=== PATIENT | female | born 1990 | race Caucasian/White ===

== ENCOUNTER 2017-10-25 12:57 | Inpatient (IN) | payer BC ==
[~2017-10-25] VITALS: Ht 157 cm; Wt 94.3 kg
[2017-11-05 21:30] VITALS: BP 138/94; Ht 157 cm; Wt 94.3 kg
[2017-11-05] MEDS ORDERED: FAMOTIDINE(*) 20MG/50ML PREMIX 50 ML IVPB PRN (21:39)
[2017-11-05] MEDS ORDERED: OXYTOCIN 30 UNIT/D5LR 500 ML 500 ML IV PRN (21:39)
[2017-11-05] MEDS: LR(*) 1000 ML BAG 1,000 ML IV SCH (21:39)
[2017-11-05] MEDS ORDERED: METOCLOPRAMIDE 10 MG/2 ML SDV IVP PRN (21:40)
[2017-11-05] MEDS ORDERED: fentaNYL CITR 100 MCG/2 ML AMP IVP PRN (21:40)
[2017-11-05] MEDS ORDERED: TERBUTALINE SULF 1 MG/ML VIAL SUBQ PRN (21:40)
[2017-11-05] MEDS ORDERED: FLUSH 10 ML SYR IVP PRN (21:40)
[2017-11-05] MEDS ORDERED: LIDOCAINE/SOD BICARB 8.4% SYR SC PRN (21:40)
[2017-11-05] MEDS ORDERED: LIDOCAINE 1% LOCAL 300 MG/30ML INJ PRN (21:40)
[2017-11-05] MEDS ORDERED: LR(*) 1000 ML BAG 1,000 ML IV PRN (21:42)
[2017-11-05 22:02] LABS: PLATELET COUNT, AUTOMATED 289 K/uL (150-450)
[2017-11-05] MEDS ORDERED: EPHEDRINE SULFATE/NS/PF 50 MG/10 ML SYRINGE IVP PRN (22:05)
[2017-11-05] MEDS ORDERED: BUPIVACAINE 0.5% INJ 30ML VIAL EPI PRN (22:05)
[2017-11-05] MEDS ORDERED: FENTANYL/ROPIVACAINE 100 ML BAG EPI PRN (22:05)
[2017-11-05] MEDS ORDERED: EPIDURAL KEYS XX PRN (22:05)
[2017-11-05] MEDS ORDERED: fentaNYL CITR 100 MCG/2 ML AMP IT PRN (22:05)
[2017-11-05] MEDS ORDERED: LIDOCAINE/PF 2% 200MG/10ML AMP 200 MG/10 ML AMPUL EPI PRN (22:05)
[2017-11-05] MEDS ORDERED: LIDO/EPI 2% MPF 1:200,000 20ML EPI PRN (22:05)
[2017-11-05] MEDS ORDERED: BUPIVACAINE 0.25% MPF INJ EPI PRN (22:05)
[2017-11-05] MEDS ORDERED: PNV1COMB5 (22:07)
[2017-11-05] MEDS ORDERED: ACET-1966 PO (22:58)
[2017-11-06] VITALS (24 sets, daily range): BP systolic 101–147; BP diastolic 63–94
[2017-11-06] MEDS: LR(*) 1000 ML BAG 1,000 ML IV SCH ×2 (02:17→09:48)
[2017-11-06] MEDS ORDERED: OXYTOCIN 30 UNIT/D5LR 500 ML 500 ML IV PRN ×2 (02:30→11:49)
[2017-11-06] MEDS ORDERED: ACETAMINOPHEN 325 MG TAB PO PRN (08:30)
--- NOTE | 2017-11-06 08:30 | History & Physical ---
History of Present Illness Age of Patient: 26 : 1 Para or TPAL: 0000 EDC per LMP: Nov 11, 2017 Estimated Gestational Age: 39.2 Chief Complaint loss of fluid History of Present Illness The patient is a 26 year old 1 para 0000 admitted at 39 2/7 weeks estimated gestational age with an estimated date of delivery 11/11/17. Patient is admitted with complaint of loss of fluid. No vaginal bleeding. Good movement and occasional contractions. She was evaluated for active labor. She had positive amnisure and was started on slow pitiocin overnight. She had an uncomplicated course. Her record was reviewed. History Allergies: Coded Allergies: iodine (Verified Allergy, Mild, N/V, 11/06/17) Uncoded Allergies: shellfish (Allergy, Mild, 11/05/17) nausea Med Rec Home Meds Reported Medications Acetaminophen (TYLENOL) 325 Mg Tablet, 325 MG PO, TAB 11/05/17 Pnv #116/Iron Fumarate/Fa/Dha (EXPECTA COMBO PACK) 1 Each Combo..pkg 11/05/17 Exam General Exam Vital Signs Vital Signs Date Time Temp Pulse Resp B/P (MAP) Pulse Ox O2 Delivery O2 Flow Rate FiO2 11/05/17 21:30 98.8 111 18 138/94 (109) 94 Room Air Cardiovascular: Regular Rate and Rhythm Respiratory: Clear to Auscultation Abdomen: Gravid - Non-Tender Extremities: No Edema Cervical Dialation: 4 (rn) Cervical Effacement (%): 80 Cervical Consistency: Moderate Cervical Position: Anterior Station: -2 Presentation: Vertex Uterine Contractions(Q min): 3 Uterine Contraction Strength: Moderate Fetus Heart Tones: 120 Heart Tone Variabilty: Moderate FHT Accelerations: 15X15 FHT Category: I Medical Decision Making Data Points Result Diagram: 11/05/172150 Assessment and Plan Problems: (1) Active labor at term Assessment & Plan: prom, started on pitocin, will monitor for cervical change BHARAT GUSMAN MD Nov 06, 2017 08:30
[2017-11-06] MEDS ORDERED: NS(*) 0.9% 1000 ML BAG 1,000 ML PV PRN (10:46)
[2017-11-06] MEDS ORDERED: fentaNYL CITR 100 MCG/2 ML AMP ONE (11:09)
[2017-11-06] MEDS ORDERED: MORPHINE PF 5 MG/10 ML AMP ONE (11:11)
[2017-11-06] MEDS ORDERED: WATER STERILE FOR IRRIG 1000ML IR ONE (11:28)
[2017-11-06] MEDS ORDERED: FAMOTIDINE(*) 20MG/50ML PREMIX 50 ML IVPB PRN (11:49)
[2017-11-06] MEDS ORDERED: PROMETHAZINE 25 MG/ML 1 ML AMP IVP PRN (11:50)
[2017-11-06] MEDS ORDERED: FLUSH 10 ML SYR IVP PRN (11:50)
[2017-11-06] MEDS ORDERED: METOCLOPRAMIDE 10 MG/2 ML SDV IV PRN (11:50)
[2017-11-06] MEDS ORDERED: MISOPROSTOL 200 MCG TAB PR ONE (11:50)
[2017-11-06] MEDS ORDERED: ONDANSETRON 4 MG/2 ML VIAL IV PRN (11:50)
[2017-11-06] MEDS ORDERED: LANOLIN OINT 7 GM TUBE TP PRN (11:50)
--- NOTE | 2017-11-06 11:56 | Post Operative Note ---
Operative Note - HOME HEALTH CARE CASE MANAGER Operative Day Date: Nov 06, 2017 Time: 11:15 Physicians Surgeon: UZMA Vamp Seamer: KRISTY Anesthesia: TARIQ Diagnosis Pre-Op Diagnosis: IUP AT 39 2/7 CATEGORY 3 TRACING Post-Op Diagnosis: SAME Procedure Findings: CORD PH 7.166, PCO2 69.1, PO2 5, BE -4, HCO3 25.0 TCO2 27, NORMAL UTERUS OVARIES TUBES, NUCHAL CORD MALE, APGARS 8, 9 WT. 2968 GM, 6# 8.7 DICTATED 11/06 1950 Procedure(s): PLTCS Complications: 0 Fluids Fluids: 1000 CC LR IV Estimated Blood Loss: 1000 CC Dictated Date OP Note Dictated: Nov 06, 2017 Time OP Note Dictated: 11:55 Copies to: BHARAT GUSMAN MD, JOHN MD Nov 06, 2017 11:56
[2017-11-06] MEDS ORDERED: SUCCINYLCHOL CHL 100MG/5ML SYR IVP ONE (12:15)
[2017-11-06] MEDS ORDERED: OXYTOCIN 10 UNIT/ML SDV ONE ×3 (12:15)
[2017-11-06] MEDS ORDERED: ROCURONIUM BROM 10 MG/ML 10 ML ONE (12:15)
[2017-11-06] MEDS ORDERED: PROPOFOL EMUL(*) 10MG/ML 20 ML 20 ML ONE (12:15)
[2017-11-06] MEDS ORDERED: NEOSTIG METHYLSUL 10MG/10ML VL ONE (12:16)
[2017-11-06] MEDS ORDERED: LIDOCAINE 1%MDV(*)200 MG/20 ML 1 ML ONE (12:16)
[2017-11-06] MEDS ORDERED: ONDANSETRON 4 MG/2 ML VIAL ONE (12:16)
[2017-11-06] MEDS ORDERED: KETOROLAC 30 MG/ML VIAL ONE (12:16)
[2017-11-06] MEDS ORDERED: GLYCOPYRROLATE 1 MG/5 ML INJ ONE (12:16)
[2017-11-06] MEDS ORDERED: MISOPROSTOL 200 MCG TAB ONE (12:32)
[2017-11-06] MEDS ORDERED: TERBUTALINE SULF 1 MG/ML VIAL ONE (12:42)
[2017-11-06] MEDS ORDERED: LIDO/EPI 2% MPF 1:200,000 20ML ONE (12:42)
[2017-11-06] MEDS: SIMETHICONE 80 MG CHEW CHEW SCH ×3 (13:00→21:26)
[2017-11-06] MEDS: DLR(*) 1000 ML BAG 1,000 ML IV PRN ×2 (13:43→21:32)
--- NOTE | 2017-11-06 14:17 | Anesthesia OB Pre-Anes Eval ---
History of Present Illness Anesthesia Start Date: Nov 06, 2017 Anesthesia Start Time: 10:11 OB Anesthesia Diagnosis: spontaneous ROM Complications: None known EDC: Nov 11, 2017 : 1 Para: 0 Pain Ratin Heart Tones: WNL Result Diagram: 11/05/17 2151 Height (Inches): 61.80 Weight (Pounds): 208 BMI Calculated: 38.29 Past Medical History Medical History: no pertinent history Surgical History: no surgical history Previous Anesthesia: epidural Attended Childbirth Classes?: No Hx Anesthesia Reactions: No Hx Family Anesthesia Reaction: No Current Medications: pain medication (IV Fentenyl) Home Meds Reported Medications Acetaminophen (TYLENOL) 325 Mg Tablet, 325 MG PO, TAB 11/05/17 Pnv #116/Iron Fumarate/Fa/Dha (EXPECTA COMBO PACK) 1 Each Combo..pkg 11/05/17 Allergies: Coded Allergies: iodine (Verified Allergy, Mild, N/V, 11/06/17) Uncoded Allergies: shellfish (Allergy, Mild, 11/05/17) nausea Anesthesia OB ROS Neurological: other, No migraines/headaches, No seizures, No neuropathy Eyes ROS: other (glasses) ENT: Denies Tooth caps, Denies Loose teeth, Denies Chipped teeth, Denies Dentures, Denies Bridges, Denies Retainers, Denies Veneers, Denies Implants, Denies Tongue ring Pulmonary: No asthma, smoker (pks/day/yrs) (Stopped with ), No other Airway Class: ll Cardiovascular ROS: No edema, No arrhythmia GI ROS: clear liquids Last Solids Date: Nov 05, 2017 Last Solids Time: 19:00 ROS: No Herpes, No STD(s), No Liver Disease, No Renal Disease Endocrine ROS: No diabetes, No gestational diabetes, No thyroid disorder Musculoskeletal ROS: No low back pain, No low back injury, No scoliosis ASA Classification: 2 Assessment and Plan Anesthesia Plan: CSE Assessment Past Medical, Surgical, Family and Obstetric Histories reviewed. Please see ACOG chart. Epidural anesthesia risks, complications and benefits explained to patient's satisfaction for labor and vaginal delivery and/or section. General anesthesia risks and benefits explained to patient's satisfaction. Questions invited, none asked. Pt. moderately vocal with contractions, having difficulty with tolerating discomfort of contractions. SLY POTTER CRNA Nov 06, 2017 14:17
--- NOTE | 2017-11-06 14:26 | Procedure Note ---
Anesthetic Placement Note Anesthesia Plan: CSE Permit for Anesthesia Signed: Yes Anesthesia Technique: Patient Sitting Anesthesia Prep: Chlorhexidine Interspace: L 3-4 Local Anesthetic: 1% Lidocaine, 25 Gauge Needle Amount Local - cc's: 2 Anesthesia Needle: 17g Touhy/Schliff Anesthesia Attempts: 1 Loss of Resistance: Air Depth of REINALDO (cm): 6 Epidural Needle Placement: No CSF, No Blood, No Parasthesia Intrathecal Needle: 27 Gauge Pencan Cerebral Spinal Fluid: Yes, Clear Catheter Insertion (cm): 8 Catheter Type: Stanley - Spring Wound Epidural Dressing: Tape, Adhesive Dennis Anesthesia Tray: Lot Number ([id number]), Expiration Date (2018-05-29), Reference Number ([id number]) Anesthesia Medications: Intrathecal Dose: mcg Fentanyl (15), mg Marcaine MPF (1.75), Time (1021) Epidural Test Dose: 1.5 Lido/Epi (1:200,000), Dose - mL (2), Time (1035), Negative Complications: None Comment: CSE placed with ease. After pt. changed to left lateral, FHT difficult to obtain. FSE placed by RN. Low FHT noted, pt's position changed to rt lateral with no improvement. O2 mask with 100 % applied. BP stable. Physician to beside and decision for Emergency C/Section. Attempting to dose epidural while inroute to OR. Explanations given to pt and her . Pt. tearful. SLY POTTER CRNA Nov 06, 2017 14:26
[2017-11-06] MEDS ORDERED: KETOROLAC 30 MG/ML VIAL IVP SCH (15:00)
[2017-11-06] MEDS: KETOROLAC 30 MG/ML VIAL IVP SCH ×2 (18:03→23:50)
[2017-11-06] MEDS: FAMOTIDINE 20 MG TAB PO SCH (21:26)
[2017-11-06] MEDS: DOCUSATE CALCIUM 240 MG CAP PO SCH (21:26)
[2017-11-07 04:08] VITALS: BP 120/75
[2017-11-07] MEDS: KETOROLAC 30 MG/ML VIAL IVP SCH (06:02)
[2017-11-07 06:07] LABS: PLATELET COUNT, AUTOMATED 244 K/uL (150-450)
[2017-11-07 07:15] VITALS: BP 128/84
--- NOTE | 2017-11-07 07:31 | OB/GYN Progress Note ---
OB Subjective Progress Notes Subjective Feeling OK, good oral analgesia. Treadwell a little lightheaded last evening when she stood up, hasn't tried to be up since then. No nausea, tolerating regular diet. Baby doing well, rooming in. OB Objective Physical Exam Vital Signs Date Time Temp Pulse Resp B/P (MAP) Pulse Ox O2 Delivery O2 Flow Rate FiO2 11/07/17 04:08 98.8 71 14 120/75 (90) Room Air 11/06/17 23:50 1.0 11/06/17 20:15 94 General Appearance: Alert/Awake/No Acute Distress Cardiovascular: Regular Rate and Rhythm Respiratory: No Respiratory Distress, Clear to Auscultation Abdomen: Bowel Sounds Present, Fundus Firm (at U-1), Tender (mild-moderate) Incision: Clean, Dry, Intact, Dressing (dry, removed), Van (intact) Extremities: No Tender Calves, No Edema Psychological: Alert & Oriented X3, Appropriate Mood & Affect Result Diagram: 11/07/17 0555 Assessment and Plan Problems: (1) Status post section Assessment & Plan: Doing well postoperatively. Will try to ambulate today and remove IV. Probably discharge home tomorrow. (2) Active labor at term Status: Resolved SHANNA DUONG MD Nov 07, 2017 07:31
[2017-11-07] MEDS: SIMETHICONE 80 MG CHEW CHEW SCH ×4 (08:36→21:39)
[2017-11-07] MEDS: DOCUSATE CALCIUM 240 MG CAP PO SCH ×2 (08:36→21:38)
[2017-11-07] MEDS: FAMOTIDINE 20 MG TAB PO SCH ×2 (08:36→21:39)
[2017-11-07] MEDS ORDERED: IBUPROFEN 800 MG TAB PO SCH (09:00)
--- NOTE | 2017-11-07 11:17 | Anesthesia Post Eval Note ---
Anesthesia Post Eval Note Vital Signs Date Time Temp Pulse Resp B/P (MAP) Pulse Ox O2 Delivery O2 Flow Rate FiO2 11/07/17 07:15 98.6 75 16 128/84 (99) 91 Room Air 11/06/17 23:50 1.0 Pt able to participate in Eval: Yes Cardiovascular Status: Satisfactory Respiratory Status: Satisfactory Pain Managment: Satisfactory PO Nausea/Vomiting: Satisfactory Temperature Management: Satisfactory Mental Status: Satisfactory, Alert, Oriented X3 Post-Op Hydration Status: Satisfactory, Tolerating PO Well, Voiding w/o Difficulty Anesthesia Type: CSE Anesthesia Tolerance: Tolerated procedure well without apparent anesthetic complications. LP site clear, no redness or edema. Denies headache or any residual paresthesia. Vital Signs Stable, Patient comfortable and condition stable. States she has had mild to moderate itching, no medications taken. SLY POTTER CRNA Nov 07, 2017 11:17
[2017-11-07 11:20] VITALS: BP 138/97
[2017-11-07] MEDS: IBUPROFEN 800 MG TAB PO SCH ×2 (11:36→19:31)
[2017-11-07 16:15] VITALS: BP 135/88
[2017-11-07 19:38] VITALS: BP 145/96
--- NOTE | 2017-11-07 23:06 | OPERATIVE REPORT 1 ---
EVENT DATE: November 06, 2017 SURGEON: Hipolito Odom MD ANESTHESIOLOGIST: Katina Keating CRNA ANESTHESIA: Epidural and general. PIT OPERATOR: Josep Godinez MD PREOPERATIVE DIAGNOSES 1. Intrauterine at 39-2/7. 2. Category III heart tracing. POSTOPERATIVE DIAGNOSIS 1. Intrauterine at 39-2/7. 2. Category III heart tracing. PROCEDURE PERFORMED Emergent primary low transverse section. COMPLICATIONS None. FLUIDS Lactated Ringer's 1000 mL IV. ESTIMATED BLOOD LOSS 1000 mL INDICATIONS Patient is a 26-year-old 1 admitted at 39-1/7 weeks estimated gestational age with rupture of membranes. On admission, she was not in labor. She was augmented with Pitocin and made very slow progress throughout the night. Made more rapid progress in the morning of the 10th. After epidural was placed, was comfortable. However, there was some difficulty obtaining heart tracing, and a scalp electrode was placed. There was a prolonged bradycardia. Patient was repositioned. Fluid bolus was initiated and oxygen. Pitocin was turned off. The heart tones improved. However, additional exam noted patient was complete. Another sign of variable-type decelerations along with prolonged bradycardia was noted. Intrauterine pressure catheter was attempted to be placed, however, was not reading normally. This was with hopes to possibly amnion infuse to see if tracing could improve. She was complete and +2/5. Initially started to be set up to see if patient could push the baby; however, bradycardia continued, and it was decided at that point to perform a primary low transverse on an emergent basis. FINDINGS Cord pH was 7.166, pCO2 of 69.1, pO2 of 5, base excess -4, bicarb 25.0. Total CO2 was 27. Normal uterus, ovaries, and tubes. There was a nuchal cord. It was a male infant, Apgars 8 at one minute, 9 at five minutes. Weight was 2968 g , 6 pounds 8.7 ounces. DESCRIPTION OF PROCEDURE After informed consent was obtained, the patient was taken to the operating room with the IV running. A Bradley catheter had been placed in the labor and delivery suite. She was transferred to the bed. She was then dosed for abdominal surgery through the epidural. She was placed in supine position with leftward tilt. She was prepped and draped. However, she had not felt that the epidural anesthesia was adequate. She was then prepped for general endotracheal anesthesia. Once the endotracheal tube was placed, the Pfannenstiel skin incision was made, and the fascia was nicked in the midline. The fascia was bluntly spread laterally. The rectus muscles were divided in the midline, peritoneum entered bluntly, and the abdominal incision spread. The inferior aspects of the rectus muscles were then removed from the underlying layer of fascia. The fascia had been dissected away from the rectus muscles with blunt dissection. The bladder flap was created with Metzenbaum scissors, and a bladder blade was then placed. The low transverse uterine incision made with the scalpel and extended laterally with digital technique of the veneer production machine operator. The infant's vertex was removed from the pelvis, then delivered through the uterine incision, and the remainder of delivered with ease. A nuchal cord was noted around the left shoulder. The infant was noted to have some grunts initially and then later did have crying and movement of all four extremities after the cord was clamped times two and cut. The was moved to the warmer where nursing personnel were in attendance. Cord blood and cord pH were both obtained. The placenta delivered intact manually. The uterus exteriorized and cleared of all clot and debris. Pitocin 20 units was added to the IV bag to help firm the uterus. The uterine incision was closed with 0 Vicryl in a running locked fashion. A second imbricating layer of 0 Vicryl was used. The posterior cul-de-sac was copiously irrigated. Inspection of the uterine incision revealed excellent hemostasis. Left and right pericolic gutters were cleared of all clot and debris. The uterine incision once again inspected and noted to be hemostatic. The peritoneum and rectus muscles were approximated with 2-0 Vicryl in a running fashion. The subfascial compartment was inspected. Any bleeding was made hemostatic with a Bovie. Fascia was closed with 0 Vicryl in a running fashion. Subcutaneous space was irrigated. Any bleeding made hemostatic with a Bovie. Subcutaneous space was approximated with 3-0 Vicryl in a running fashion. Skin closed with jonathan. All sponge, lap, instrument, and needle counts were correct. The patient was taken to the recovery room in stable condition. AIDAN
[2017-11-07] MEDS ORDERED: ACETAMINOPHEN 325 MG TAB PO PRN (23:20)
[2017-11-07 23:30] VITALS: BP 142/90
[2017-11-07] MEDS: HYDROmorphone HCL 2 MG TAB PO PRN (23:39)
[2017-11-08] VITALS (16 sets, daily range): BP systolic 123–158; BP diastolic 77–123
[2017-11-08] MEDS: HYDROmorphone HCL 2 MG TAB PO PRN ×3 (00:24→13:17)
[2017-11-08] MEDS: IBUPROFEN 800 MG TAB PO SCH ×2 (04:09→12:19)
--- NOTE | 2017-11-08 08:03 | OB/GYN Progress Note ---
OB Subjective Progress Notes Subjective Still with lots of pain and secondary hypertension. Pain is primarily incisional , with scores of 5/10 when active, and 0-1/10 when resting. Changed analgesic from Percocet to Dilaudid/Tylenol, with some benefit. Otherwise doing OK, ambulating slowly, voiding well. Good appetite, passing flatus. OB Objective Physical Exam Vital Signs Date Time Temp Pulse Resp B/P (MAP) Pulse Ox O2 Delivery O2 Flow Rate FiO2 11/08/17 07:00 97.5 81 16 136/90 (105) Room Air 11/08/17 04:05 91 11/06/17 23:50 1.0 BP's 120-150/80-90's (probably due to inadequate analgesia). General Appearance: Alert/Awake/No Acute Distress Cardiovascular: Regular Rate and Rhythm Respiratory: No Respiratory Distress, Clear to Auscultation Abdomen: Bowel Sounds Present, Fundus Firm (at U-1), Tender (mildly), Other ( soft) Incision: Clean, Dry, Intact, Dressing (dry, removed), Tom (intact) Extremities: No Tender Calves, No Edema Psychological: Alert & Oriented X3, Appropriate Mood & Affect Result Diagram: 11/07/17 0555 Assessment and Plan Problems: (1) Status post section Assessment & Plan: Hypertension, probably due to inadequate analgesia. Patient thinks that Hydromorphone is a better than Oxycodone, so will increase dose of Hydromorphone and observe during the day today. Probably discharge home this evening if analgesia is improved and BP's are stable. (2) Active labor at term Status: SHANNA Cuba MD Nov 08, 2017 08:03
[2017-11-08] MEDS: FAMOTIDINE 20 MG TAB PO SCH (09:21)
[2017-11-08] MEDS: SIMETHICONE 80 MG CHEW CHEW SCH ×2 (09:21→13:09)
[2017-11-08] MEDS: DOCUSATE CALCIUM 240 MG CAP PO SCH (09:21)
[2017-11-08] MEDS ORDERED: INFLUENZA VIRUS VAC 0.5 ML SYR IM ONLY ONE (11:50)
[2017-11-08] MEDS ORDERED: DIPHTH/TETANUS/ACEL. PERTUSSIS IM ONLY ONE (11:50)
[2017-11-08] MEDS ORDERED: MEASLES,MUMP,RUBELLA VAC 0.5ML SUBQ ONE (11:50)
[2017-11-08] MEDS ORDERED: HYDR2TAB4 PO (12:59)
[2017-11-08] MEDS ORDERED: IBUP800T37 PO (12:59)
--- NOTE | 2017-11-08 13:03 | OB/GYN Discharge Summary ---
Discharge Summary Reason for Hosp/Final Diag: (1) Status post section Hospital Course & Plan: PLTCS emergently performed. on day 2 Hypertension. Patient thinks that Hydromorphone is a better than Oxycodone. Tolerating diet and activity (2) Active labor at term Status: Resolved Lates Vital Signs Vital Signs Date Time Temp Pulse Resp B/P (MAP) Pulse Ox O2 Delivery O2 Flow Rate FiO2 11/08/17 11:00 98.0 83 16 141/94 (110) Room Air 11/08/17 04:05 91 11/06/17 23:50 1.0 Weight (Pounds): 208 Result Diagram: 11/07/17 0555 Condition: Improved Discharge: Home, Self [facility] Meds Active Scripts Hydromorphone Hcl (HYDROMORPHONE HCL) 2 Mg Tablet, 2-4 MG PO Q4H for PAIN, #30 TAB 0 Refills Prov:BHARAT ODOM MD 11/08/17 Reported Medications Acetaminophen (TYLENOL) 325 Mg Tablet, 325 MG PO, TAB 11/05/17 Pnv #116/Iron Fumarate/Fa/Dha (EXPECTA COMBO PACK) 1 Each Combo..pkg 11/05/17 Follow up with: Dr. Odom [phone] Follow up in: 5-7 days Discharge Diet: As Tolerates Discharge Activity: Pelvic Rest Copies to: BHARAT ODOM MD, JOHN MD Nov 08, 2017 13:02
[2017-11-08] MEDS ORDERED: LABETALOL HCL 100 MG TAB PO SCH (13:05)
[2017-11-08] MEDS ORDERED: LABE1POW PO (15:08)
[2017-11-08] MEDS ORDERED: LABE100T28 PO (15:49)
== END 2017-11-08 16:25 | disposition home or self-care (01) | DRG 766 ==
LOC: EDSTATUS 12:57 → OB 11-05 20:45 → OBSVTOIN 11-05 20:45 → OB 11-06 14:12
PROVIDERS: ADMIT Obstetrics & Gynecology; ATTEND Obstetrics & Gynecology
PROC: 4A1HX4Z Monitoring of Products of Conception, Cardiac Electrical Activity, External Approach (ICD-10-PCS; 2017-11-06)
PROC: 3E033VJ Introduction of Other Hormone into Peripheral Vein, Percutaneous Approach (ICD-10-PCS; 2017-11-06)
PROC: 10D00Z1 Extraction of Products of Conception, Low, Open Approach (ICD-10-PCS; principal; 2017-11-06 11:05)
DX: O42.02 Full-term premature rupture of membranes, onset of labor within 24 hours of rupture (principal); O69.81X0 Labor and delivery complicated by cord around neck, without compression, not applicable or unspecified; O76 Abnormality in fetal heart rate and rhythm complicating labor and delivery; O16.5 Unspecified maternal hypertension, complicating the puerperium; Z37.0 Single live birth; Z3A.39 39 weeks gestation of pregnancy; Z91.013 Allergy to seafood; Z88.8 Allergy status to other drugs, medicaments and biological substances; Z87.891 Personal history of nicotine dependence
CPT/HCPCS: 36415; 84112; 85025; 86850; 86900; 86901; 88307; J0330; J1885; J2001; J2270; J2405; J2590; J2704; J2710; J3010; J3105; J3490; J7120; S0020